=== PATIENT | female | born 1960 | race Caucasian/White ===

== ENCOUNTER → 2016-10-14 | Outpatient (CLI) | payer MEDICARE, OTHER ==
[2016-10-14 15:47] LABS: Blood Urea Nitrogen 19 mg/dL (7-17); Non-African American GFR(MDRD) >60 (>60 ml/min/1.73 sqM)
== END | disposition home or self-care (01) ==
LOC: LABWHC1 15:20
PROVIDERS: ATTEND Psychiatry & Neurology Neurology
DX: R51 Headache (principal)
CPT/HCPCS: 36415; 82565; 84520

== ENCOUNTER → 2016-10-29 | Outpatient (CLI) | payer MEDICARE, OTHER | END | disposition home or self-care (01) | LOC: RADMRIMAIN 07:40 | PROVIDERS: ATTEND Psychiatry & Neurology Neurology | DX: Z53.9 Procedure and treatment not carried out, unspecified reason (principal) ==

== ENCOUNTER → 2016-11-19 | Outpatient (CLI) | payer MEDICARE, OTHER ==
--- NOTE | 2016-11-19 11:57 | MR ---
EXAMINATION TYPE: MR angio head wo con DATE OF EXAM: 11/19/2016 11:35 AM COMPARISON: NONE HISTORY: brain tumor cerebral aneurysm Three-dimensional [id number] intracranial MRA was performed with multiple intensity projection im ages submitted and source data reviewed at the workstation. The vertebrobasilar system as well as intracranial portions of the internal carotid arteries and thei r major tributaries are patent. I do not see evidence for sizable aneurysm or vascular malformation. IMPRESSION: Normal study.
--- NOTE | 2016-11-19 12:03 | MR ---
EXAMINATION TYPE: MR brain wo/w con DATE OF EXAM: 11/19/2016 11:56 AM COMPARISON: NONE HISTORY: brain tumor cerebral aneurysm CONTRAST: Patient received 8 mL intravenous Gadavist gadolinium contrast. Multiplanar and multispin-echo imaging of the brain was performed . Pre and post contrast enhanced i mages are obtained. The ventricles, basal cisterns and sulci overlying the cerebral convexities are mildly enlarged. Inc idental septum cavum pellucidum and vergae. There is evidence of mild periventricular white matter ischemic demyelination. Remote deep white matter insults are also noted. No acute edema is seen on diffusion weighted imaging. There is no evidence for midline shift or mass effect. Acute intracranial hemorrhage or extra-axial collection is not evident. No enhancing lesions are seen. Fluid within the left-sided mastoid air cells. Chronic left paranasal sinusitis. IMPRESSION: Age-related atrophic and chronic small vessel ischemic change. No acute intracranial process at this time. No enhancing lesions are seen.
== END | disposition home or self-care (01) ==
LOC: RADMRIMAIN 10:42
PROVIDERS: ATTEND Psychiatry & Neurology Neurology
DX: G31.1 Senile degeneration of brain, not elsewhere classified (principal); I67.82 Cerebral ischemia; D43.2 Neoplasm of uncertain behavior of brain, unspecified; I67.1 Cerebral aneurysm, nonruptured
CPT/HCPCS: 70544; 70553; A9581